=== PATIENT | female | born 1990 | race Caucasian/White ===

== ENCOUNTER 2017-11-22 16:14 | Emergency (ER) | payer OTHER, MEDICAID ==
[~2017-11-22] VITALS: Ht 162.6 cm; Wt 65.8 kg
[~2017-11-22 16:14] MED LIST: BIAXIN 500 MG500 M2 PO; CLEOCIN HCL300 MG PO; IBUPROFEN 800800 M1 PO; IBUPROFEN 800800 MG PO; NAPROXEN; NOHOMEMEDICATIONS; PREDNISONE50 MG PO; ROBAXIN500 MG PO
[2017-11-22 16:26] VITALS: BP 123/82
[2017-11-22] MEDS ORDERED: MEDROLDOSEPACK PO (16:49)
[2017-11-22] MEDS ORDERED: VISTARIL 25 MG25 M1 PO (16:51)
[2017-11-22] MEDS ORDERED: PEPCID20 MG PO (16:52)
== END 2017-11-22 17:02 | disposition home or self-care (01) ==
LOC: M.ERS 16:14
DX: L23.7 Allergic contact dermatitis due to plants, except food (principal); Z88.0 Allergy status to penicillin